=== PATIENT | female | born 1965 | race Caucasian/White ===

== ENCOUNTER 2018-10-16 11:26 | Emergency (ER) | payer MEDICAID ==
[~2018-10-16] VITALS: Ht 152.4 cm; Wt 64.9 kg
[2018-10-16 11:38] VITALS: BP 137/60; PULSE 88; RESP 18; Ht 152.4 cm; Wt 64.9 kg
[2018-10-16] MEDS ORDERED: KETOROLAC 15 MG INJ IM STA (12:08)
[2018-10-16] MEDS ORDERED: ACET-141 PO (14:28)
[2018-10-16] MEDS ORDERED: IBUP-1561 PO (14:30)
--- NOTE | 2018-10-16 14:31 | ERD ---
ER Documentation Chief Complaint Chief Complaint right rib pain x 3 days ROS All systems reviewed and are negative except as per history of present illness. Medications Home Meds Active Scripts Ibuprofen* (Motrin*) 400 Mg Tab, 400 MG PO Q6, #30 TAB Prov:JONATHAN MICHEL DO 10/16/18 Acetaminophen* (Acetaminophen*) 500 MG Extra Strength Tablet, 500 MG PO Q4H PRN for PAIN AND OR ELEVATED TEMP, #30 TAB Prov:JONATHAN MICHEL DO 10/16/18 Allergies Allergies: Coded Allergies: No Known Allergy (Unverified , 10/16/18) PMhx/Soc Hx Alcohol Use: No Hx Substance Use: No Hx Tobacco Use: No Smoking Status: Never smoker Physical Exam Vitals Vital Signs Date Temp Pulse Resp B/P (MAP) Pulse Ox O2 O2 Flow FiO2 Time Delivery Rate 10/16/18 97.6 88 18 137/60 98 11:38 (85) Physical Exam Const: No acute distress Head: Atraumatic Eyes: Normal Conjunctiva ENT: Normal External Ears, Nose and Mouth. Neck: Full range of motion. No meningismus. Resp: Clear to auscultation bilaterally Cardio: Regular rate and rhythm, no murmurs Abd: Soft, non tender, non distended. Normal bowel sounds Skin: No petechiae or rashes Back: No midline or flank tenderness Ext: No cyanosis, or edema Neur: Awake and alert Psych: Normal Mood and Affect Results 24 hrs Current Medications Medications Dose Sig/Flora Start Time Status Last (Trade) Ordered Route PRN Stop Time Admin Dose Reason Admin Ketorolac 15 mg ONCE STAT 10/16/18 DC 10/16/18 Tromethamine IM 12:08 12:25 (Toradol) 10/16/18 12:10 Departure Diagnosis: Primary Impression: Rib fracture Encounter type: initial encounter Rib fracture type: single rib Fracture type: closed Laterality: right Qualified Codes: S22.31XA - Fracture of one rib, right side, initial encounter for closed fracture Condition: Fair Patient Instructions: Rib Fracture (Broken Rib) Referrals: [facility] YOU HAVE RECEIVED A MEDICAL SCREENING EXAM AND THE RESULTS INDICATE THAT YOU DO NOT HAVE A CONDITION THAT REQUIRES URGENT TREATMENT IN THE EMERGENCY DEPARTMENT. FURTHER EVALUATION AND TREATMENT OF YOUR CONDITION CAN WAIT UNTIL YOU ARE SEEN IN YOUR DOCTORS OFFICE WITHIN THE NEXT 1-2 DAYS. IT IS YOUR RESPONSIBILITY TO MAKE AN APPOINTMENT FOR FOLOW-UP CARE. IF YOU HAVE A PRIMARY DOCTOR --you should call your primary doctor and schedule an appointment IF YOU DO NOT HAVE A PRIMARY DOCTOR YOU CAN CALL OUR PHYSICIAN REFERRAL HOTLINE AT IF YOU CAN NOT AFFORD TO SEE A PHYSICIAN YOU CAN CHOSE FROM THE FOLLOWING [facility] [address] [facility] [address] [facility] [address] [facility] [address]. [facility] [address] [facility] [facility]. [address] Additional Instructions: Llame al doctor MAANA y david marcia RAY PARA DENTRO DE 1-2 PALMA.Dgale a la secr etaria que nosotros le instruimos hacer esta ray.Avise o llame si garsia condicin se empeora antes de la ray. Regresa aqui si peor o no mejor. No levantar objetos pesados por un JONATHAN Poon DO Oct 16, 2018 14:31
== END 2018-10-16 14:41 | disposition home or self-care (01) ==
LOC: FTE 11:26
DX: S22.31XA Fracture of one rib, right side, initial encounter for closed fracture (principal); X58.XXXA Exposure to other specified factors, initial encounter; Y92.9 Unspecified place or not applicable
CPT/HCPCS: 71100; J1885; 96372